=== PATIENT | male | born 1975 | race Caucasian/White ===

== ENCOUNTER 2017-11-05 02:17 | Emergency (ER) | payer SELFPAY ==
[~2017-11-05] VITALS: Ht 172.7 cm; Wt 75.0 kg
[2017-11-05 05:20] VITALS: BP 107/71
== END 2017-11-05 05:21 | disposition home or self-care (01) ==
LOC: ER 02:17
DX: J06.9 Acute upper respiratory infection, unspecified (principal); J02.8 Acute pharyngitis due to other specified organisms
CPT/HCPCS: 71045; 99283; Z7610